=== PATIENT | male | born 1955 | race Caucasian/White ===

== ENCOUNTER 2022-01-18 03:54 | Inpatient (IN) ==
[2022-01-18] MEDS ORDERED: Ondansetron 4 MG/2 ML VIAL IVP PRN (08:07)
[2022-01-18] MEDS ORDERED: Naloxone 0.4 MG/ML INJ IVP PRN (08:07)
[2022-01-18] MEDS ORDERED: Dextrose Gel 15 GM/37.5 ML TUBE PO PRN ×2 (08:09)
[2022-01-18] MEDS ORDERED: *HR* Dextrose 50 % in Water (Syg) 50 ML SYRINGE IVP PRN (08:09)
[2022-01-18] MEDS ORDERED: D5% in Water 1,000 ML IVC PRN (08:09)
[2022-01-18] MEDS ORDERED: *HR* Labetalol 20 MG/4 ML SYRINGE IVP PRN (08:20)
[2022-01-18] MEDS ORDERED: Acetaminophen 325 MG TABLET PO PRN (08:44)
[2022-01-18] MEDS ORDERED: Morphine Sulfate 2 MG/ML SYRINGE IVP PRN (08:46)
[2022-01-18] MEDS ORDERED: *HR* LORazepam 0.5 MG TABLET PO ONE (08:58)
[2022-01-18] MEDS: Gabapentin 300 MG CAPSULE PO SCH ×3 (09:19→20:29)
[2022-01-18 09:38] LABS: Basophils % 0.5 %; Eosinophils % 0.2 %; Hematocrit 40.7 % (37.5-50.1); Hemoglobin 14.4 g/dL (12.9-16.9); Immature Granulocytes % 0.3 % (0-4); Lymphocytes # 0.6 K/mcL (0.6-4.6); Mean Corpuscular HGB Conc 35.4 g/dL (31.6-35.5); Mean Corpuscular Hemoglobin 32.9 pg (28.0-33.3); Mean Corpuscular Volume 92.9 fL (83.0-100.0); Mean Platelet Volume 8.5 fL (9.4-12.4); Monocytes # 0.4 K/mcL (0.0-1.3); Monocytes % 6.9 %; Neutrophils # 4.8 K/mcL (1.6-8.9); Platelet Count 101 K/mcL (140-400); Red Blood Count 4.38 M/mcL (4.19-5.50); Red Cell Distribution Width 13.4 % (11.5-14.5); Segmented Neutrophils % 82.1 %; White Blood Count 5.8 K/mcL (4.3-11.1)
[2022-01-18 09:41] LABS: Estimated Average Glucose 166 mg/dl; Hemoglobin A1C 7.4 %
[2022-01-18 09:57] LABS: BUN/Creatinine Ratio 9 (6-26); Blood Urea Nitrogen 4 mg/dL (8-23); Calcium 8.6 mg/dL (8.6-10.3); Carbon Dioxide 21 mEq/L (23-29); Chloride 91 mEq/L (98-107); Glucose 124 mg/dL (70-105); Magnesium 1.5 mg/dL (1.6-2.6); Osmolality,Calculated 254 (280-300); Phosphorous 3.3 mg/dL (2.7-4.5); Potassium 4.5 mEq/L (3.5-5.1); Sodium 123 mEq/L (136-145); eGFR For African Americans > 60 (> 60); eGFR For Non-African Americans > 60 (> 60)
[2022-01-18] MEDS: Thiamine (B-1) 500 MG in 0.9 % Sodium Chloride 50 ML IVPB SCH ×3 (11:06→20:14)
[2022-01-18] MEDS ORDERED: Insulin LISPRO 300 UNITS/3 ML VIAL SUBQ SCH (12:00)
[2022-01-18] MEDS ORDERED: Fluticasone Propionate Nasal 50 MCG/SPRAY BOTTLE NS PRN (16:24)
[2022-01-18] MEDS ORDERED: 0.9 % Sodium Chloride 1,000 ML IVC SCH (17:30)
[2022-01-18] MEDS: *HR* Heparin 5,000 UNIT/ML VIAL SQ SCH ×2 (17:30→20:14)
[2022-01-18] MEDS: traZODone 50 MG TABLET PO SCH (20:14)
[2022-01-18] MEDS: *HR* HYDROcodone/Acet 5/325 mg TABLET PO PRN (20:29)
[2022-01-19 04:40] LABS: Basophils % 0.4 %; Eosinophils % 0.4 %; Hematocrit 40.6 % (37.5-50.1); Hemoglobin 14.1 g/dL (12.9-16.9); Immature Granulocytes % 0.6 % (0-4); Lymphocytes # 0.8 K/mcL (0.6-4.6); Mean Corpuscular HGB Conc 34.7 g/dL (31.6-35.5); Mean Corpuscular Hemoglobin 32.6 pg (28.0-33.3); Mean Corpuscular Volume 93.8 fL (83.0-100.0); Mean Platelet Volume 8.6 fL (9.4-12.4); Monocytes # 0.5 K/mcL (0.0-1.3); Monocytes % 9.1 %; Neutrophils # 3.8 K/mcL (1.6-8.9); Platelet Count 103 K/mcL (140-400); Red Blood Count 4.33 M/mcL (4.19-5.50); Red Cell Distribution Width 13.6 % (11.5-14.5); Segmented Neutrophils % 73.5 %; White Blood Count 5.1 K/mcL (4.3-11.1)
[2022-01-19 04:54] LABS: BUN/Creatinine Ratio 12 (6-26); Blood Urea Nitrogen 7 mg/dL (8-23); Calcium 8.8 mg/dL (8.6-10.3); Carbon Dioxide 26 mEq/L (23-29); Chloride 95 mEq/L (98-107); Glucose 149 mg/dL (70-105); Osmolality,Calculated 267 (280-300); Potassium 4.1 mEq/L (3.5-5.1); Sodium 128 mEq/L (136-145); eGFR For African Americans > 60 (> 60); eGFR For Non-African Americans > 60 (> 60)
[2022-01-19] MEDS: *HR* Heparin 5,000 UNIT/ML VIAL SQ SCH ×2 (05:43→14:51)
[2022-01-19] MEDS ORDERED: CeFAZolin Syr 2,000MG/20 ML 2,000 MG/20 ML SYRINGE IVPB ONE (07:12)
[2022-01-19] MEDS ORDERED: Vancomycin 1,000 MG VIAL ONE (07:31)
[2022-01-19] MEDS: Insulin LISPRO 300 UNITS/3 ML VIAL SUBQ SCH ×3 (07:37→16:36)
[2022-01-19] MEDS ORDERED: Lidocaine -MPF 2% 2 ML VIAL ONE (07:41)
[2022-01-19] MEDS ORDERED: *HR* Rocuronium Bromide 50 MG/5 ML VIAL ONE (07:41)
[2022-01-19] MEDS ORDERED: *HR* FentaNYL (PF) 100 MCG/2 ML VIAL ONE ×2 (07:41→08:55)
[2022-01-19] MEDS ORDERED: Lidocaine HCL 4 ML Topical Solution (Laryng-O-Jet Kit Sterile Pak) TP ONE (07:41)
[2022-01-19] MEDS ORDERED: *HR* Propofol 200 MG/20 ML VIAL IVP ONE (07:41)
[2022-01-19] MEDS ORDERED: Ondansetron 4 MG/2 ML VIAL ONE (07:41)
[2022-01-19] MEDS ORDERED: Racepinephrine Neb 0.5 ML VIAL IH PRN (07:43)
[2022-01-19] MEDS ORDERED: *HR* HYDROmorphone PF 0.5 MG/0.5 ML SYRINGE IVP PRN (07:43)
[2022-01-19] MEDS ORDERED: *HR* Meperidine 25 MG/ML SYRINGE IVP PRN (07:43)
[2022-01-19] MEDS ORDERED: Ipratropium Neb 0.5 MG NEBULIZER IH PRN (07:43)
[2022-01-19] MEDS ORDERED: cloNIDine HCL 0.1 MG TABLET PO PRN (07:43)
[2022-01-19] MEDS ORDERED: flumazeniL 0.5 MG/5 ML VIAL IVP PRN (07:43)
[2022-01-19] MEDS ORDERED: Ondansetron 4 MG/2 ML VIAL IVP PRN (07:43)
[2022-01-19] MEDS ORDERED: Naloxone 0.4 MG/ML INJ IVP PRN (07:43)
[2022-01-19] MEDS ORDERED: *HR* Labetalol 20 MG/4 ML SYRINGE IVP PRN (07:43)
[2022-01-19] MEDS ORDERED: *HR* OxyCODONE Immed Rel 5 MG TABLET PO PRN (07:43)
[2022-01-19] MEDS ORDERED: Acetaminophen IV 1,000 MG/100 ML BAG IVPB PRN (07:43)
[2022-01-19] MEDS ORDERED: Albuterol 2.5 MG/3 ML NEBULIZER IH PRN (07:43)
[2022-01-19] MEDS ORDERED: *HR* Midazolam HCl 2 MG/2 ML VIAL IVP PRN (07:43)
[2022-01-19] MEDS ORDERED: *HR* HYDROMORPHONE 2 MG/ML VIAL ONE (09:50)
[2022-01-19] MEDS ORDERED: Sugammadex Sodium 200 MG/2 ML VIAL IV ONE (09:57)
[2022-01-19] MEDS: Gabapentin 300 MG CAPSULE PO SCH ×3 (12:19→21:03)
[2022-01-19] MEDS: Thiamine (B-1) 500 MG in 0.9 % Sodium Chloride 50 ML IVPB SCH ×3 (12:19→15:34)
[2022-01-19] MEDS: Ringers Solution, Lactated 1,000 ML IVC SCH (13:11)
[2022-01-19] MEDS: CeFAZolin 2 GM/120 ML BAG IVPB SCH (16:36)
[2022-01-19] MEDS: traZODone 50 MG TABLET PO SCH (21:03)
[2022-01-19] MEDS: *HR* HYDROcodone/Acet 5/325 mg TABLET PO PRN (21:04)
[2022-01-20] MEDS: CeFAZolin 2 GM/120 ML BAG IVPB SCH (00:07)
[2022-01-20 05:15] LABS: Basophils % 0.3 %; Eosinophils % 0.3 %; Hematocrit 27.8 % (37.5-50.1); Immature Granulocytes % 0.4 % (0-4); Lymphocytes # 1.1 K/mcL (0.6-4.6); Mean Corpuscular HGB Conc 34.2 g/dL (31.6-35.5); Mean Corpuscular Hemoglobin 33.6 pg (28.0-33.3); Mean Corpuscular Volume 98.2 fL (83.0-100.0); Monocytes # 0.6 K/mcL (0.0-1.3); Neutrophils # 5.3 K/mcL (1.6-8.9); Platelet Count 100 K/mcL (140-400); Red Blood Count 2.83 M/mcL (4.19-5.50); Red Cell Distribution Width 13.7 % (11.5-14.5); White Blood Count 7.1 K/mcL (4.3-11.1)
[2022-01-20 05:16] LABS: Hemoglobin 9.5 g/dL (12.9-16.9)
[2022-01-20 05:38] LABS: Alanine Aminotransferase 8 Units/L (7-52); Albumin 3.3 g/dL (3.5-5.7); Albumin/Globulin Ratio 1.3 (1.1-2.2); Alkaline Phosphatase 59 Units/L (34-104); Aspartate Amino Transferase 16 Units/L (13-39); BUN/Creatinine Ratio 10 (6-26); Bilirubin,Direct 0.2 mg/dL (0.0-0.2); Bilirubin,Indirect 0.6 mg/dL (0.0-1.0); Bilirubin,Total 0.8 mg/dL (0.3-1.0); Blood Urea Nitrogen 7 mg/dL (8-23); Calcium 8.5 mg/dL (8.6-10.3); Carbon Dioxide 30 mEq/L (23-29); Chloride 94 mEq/L (98-107); Globulin 2.5 g/dL (2.4-3.5); Glucose 285 mg/dL (70-105); Magnesium 1.7 mg/dL (1.6-2.6); Osmolality,Calculated 274 (280-300); Phosphorous 2.1 mg/dL (2.7-4.5); Potassium 4.2 mEq/L (3.5-5.1); Sodium 128 mEq/L (136-145); Total Protein 5.8 g/dL (6.4-8.9); eGFR For African Americans > 60 (> 60); eGFR For Non-African Americans > 60 (> 60)
[2022-01-20] MEDS: Multivit/Ca/Min/Fe/FA 1 TAB TABLET PO SCH (10:09)
[2022-01-20] MEDS: lisinopriL 5 MG TABLET PO SCH (10:09)
[2022-01-20] MEDS: Thiamine (B-1) 100 MG TABLET PO SCH (10:09)
[2022-01-20] MEDS: Folic Acid 1 MG TABLET PO SCH (10:10)
[2022-01-20] MEDS: Gabapentin 300 MG CAPSULE PO SCH ×3 (10:10→21:17)
[2022-01-20] MEDS: *HR* HYDROcodone/Acet 5/325 mg TABLET PO PRN ×2 (10:13→17:26)
[2022-01-20] MEDS: *HR* Enoxaparin 40 MG/0.4 ML SYRINGE SQ SCH (10:14)
[2022-01-20] MEDS: Insulin LISPRO 300 UNITS/3 ML VIAL SUBQ SCH ×3 (10:26→17:38)
[2022-01-20] MEDS ORDERED: Cyanocobalamin (B-12) 1,000 MCG/ML VIAL SQ ONE (12:49)
[2022-01-20] MEDS: Iron Sucrose Complex 200 MG in 0.9 % Sodium Chloride 100 ML IVPB SCH (17:32)
[2022-01-20] MEDS: traZODone 50 MG TABLET PO SCH (21:17)
[2022-01-21] MEDS: *HR* Enoxaparin 40 MG/0.4 ML SYRINGE SQ SCH (06:07)
[2022-01-21 07:21] LABS: Basophils % 0.3 %; Eosinophils # 0.1 K/mcL (0.0-0.6); Eosinophils % 0.9 %; Hematocrit 25.2 % (37.5-50.1); Hemoglobin 8.3 g/dL (12.9-16.9); Immature Granulocytes % 0.5 % (0-4); Lymphocytes % 17.4 %; Mean Corpuscular HGB Conc 32.9 g/dL (31.6-35.5); Mean Corpuscular Hemoglobin 32.9 pg (28.0-33.3); Mean Platelet Volume 8.9 fL (9.4-12.4); Monocytes # 0.5 K/mcL (0.0-1.3); Neutrophils # 4.2 K/mcL (1.6-8.9); Platelet Count 110 K/mcL (140-400); Red Blood Count 2.52 M/mcL (4.19-5.50); Segmented Neutrophils % 72.9 %; White Blood Count 5.8 K/mcL (4.3-11.1)
[2022-01-21 07:48] LABS: BUN/Creatinine Ratio 15 (6-26); Blood Urea Nitrogen 8 mg/dL (8-23); Calcium 8.7 mg/dL (8.6-10.3); Carbon Dioxide 32 mEq/L (23-29); Chloride 96 mEq/L (98-107); Glucose 219 mg/dL (70-105); Magnesium 1.7 mg/dL (1.6-2.6); Osmolality,Calculated 279 (280-300); Sodium 132 mEq/L (136-145); eGFR For African Americans > 60 (> 60); eGFR For Non-African Americans > 60 (> 60)
[2022-01-21] MEDS: Gabapentin 300 MG CAPSULE PO SCH ×3 (08:06→21:45)
[2022-01-21] MEDS: lisinopriL 5 MG TABLET PO SCH (08:06)
[2022-01-21] MEDS: Folic Acid 1 MG TABLET PO SCH (08:06)
[2022-01-21] MEDS: Thiamine (B-1) 100 MG TABLET PO SCH (08:06)
[2022-01-21] MEDS: Multivit/Ca/Min/Fe/FA 1 TAB TABLET PO SCH (08:06)
[2022-01-21] MEDS: *HR* SitaGLIPtin 25 MG TABLET PO SCH (08:06)
[2022-01-21] MEDS: Insulin LISPRO 300 UNITS/3 ML VIAL SUBQ SCH ×3 (08:08→17:41)
[2022-01-21] MEDS: Iron Sucrose Complex 200 MG in 0.9 % Sodium Chloride 100 ML IVPB SCH (09:56)
[2022-01-21] MEDS: traZODone 50 MG TABLET PO SCH (21:45)
[2022-01-22 02:16] LABS: Basophils % 0.7 %; Eosinophils # 0.1 K/mcL (0.0-0.6); Eosinophils % 1.2 %; Hematocrit 23.8 % (37.5-50.1); Lymphocytes % 16.5 %; Mean Corpuscular HGB Conc 33.6 g/dL (31.6-35.5); Mean Corpuscular Hemoglobin 33.1 pg (28.0-33.3); Mean Corpuscular Volume 98.3 fL (83.0-100.0); Mean Platelet Volume 8.7 fL (9.4-12.4); Monocytes # 0.5 K/mcL (0.0-1.3); Monocytes % 9.1 %; Neutrophils # 4.2 K/mcL (1.6-8.9); Platelet Count 125 K/mcL (140-400); Red Blood Count 2.42 M/mcL (4.19-5.50); Red Cell Distribution Width 13.7 % (11.5-14.5); Segmented Neutrophils % 71.5 %; White Blood Count 5.9 K/mcL (4.3-11.1)
[2022-01-22 02:33] LABS: BUN/Creatinine Ratio 17 (6-26); Blood Urea Nitrogen 9 mg/dL (8-23); Calcium 8.6 mg/dL (8.6-10.3); Carbon Dioxide 29 mEq/L (23-29); Chloride 93 mEq/L (98-107); Glucose 274 mg/dL (70-105); Magnesium 1.4 mg/dL (1.6-2.6); Osmolality,Calculated 274 (280-300); Potassium 4.3 mEq/L (3.5-5.1); Sodium 128 mEq/L (136-145); eGFR For African Americans > 60 (> 60); eGFR For Non-African Americans > 60 (> 60)
[2022-01-22] MEDS: *HR* Enoxaparin 40 MG/0.4 ML SYRINGE SQ SCH (05:51)
[2022-01-22] MEDS: *HR* SitaGLIPtin 25 MG TABLET PO SCH (07:50)
[2022-01-22] MEDS: Gabapentin 300 MG CAPSULE PO SCH ×3 (07:50→22:48)
[2022-01-22] MEDS: lisinopriL 5 MG TABLET PO SCH (07:50)
[2022-01-22] MEDS: Thiamine (B-1) 100 MG TABLET PO SCH (07:50)
[2022-01-22] MEDS: Multivit/Ca/Min/Fe/FA 1 TAB TABLET PO SCH (07:50)
[2022-01-22] MEDS: Folic Acid 1 MG TABLET PO SCH (07:50)
[2022-01-22] MEDS: Insulin LISPRO 300 UNITS/3 ML VIAL SUBQ SCH ×3 (08:02→17:14)
[2022-01-22] MEDS: Ringers Solution, Lactated 1,000 ML IVC SCH (10:35)
[2022-01-22] MEDS ORDERED: Iron Sucrose Complex 200 MG in 0.9 % Sodium Chloride 100 ML IVPB ONE (11:00)
[2022-01-22] MEDS ORDERED: Cyanocobalamin (B-12) 1,000 MCG/ML VIAL SQ ONE (11:01)
[2022-01-22] MEDS: *HR* HYDROcodone/Acet 5/325 mg TABLET PO PRN (21:19)
[2022-01-22] MEDS: traZODone 50 MG TABLET PO SCH (21:19)
[2022-01-22] MEDS: *HR* Metformin 500 MG TABLET PO SCH (22:10)
[2022-01-22] MEDS ORDERED: *HR* OxyCODONE Immed Rel 5 MG TABLET PO PRN (22:16)
[2022-01-23] MEDS: *HR* Enoxaparin 40 MG/0.4 ML SYRINGE SQ SCH (05:12)
[2022-01-23 07:07] LABS: Basophils % 0.7 %; Eosinophils # 0.1 K/mcL (0.0-0.6); Eosinophils % 1.6 %; Hemoglobin 7.7 g/dL (12.9-16.9); Immature Granulocytes % 1.4 % (0-4); Lymphocytes # 0.8 K/mcL (0.6-4.6); Lymphocytes % 18.3 %; Mean Corpuscular HGB Conc 33.5 g/dL (31.6-35.5); Mean Corpuscular Hemoglobin 32.6 pg (28.0-33.3); Mean Corpuscular Volume 97.5 fL (83.0-100.0); Mean Platelet Volume 8.9 fL (9.4-12.4); Monocytes # 0.5 K/mcL (0.0-1.3); Monocytes % 10.5 %; Neutrophils # 2.9 K/mcL (1.6-8.9); Platelet Count 146 K/mcL (140-400); Red Blood Count 2.36 M/mcL (4.19-5.50); Red Cell Distribution Width 14.1 % (11.5-14.5); Segmented Neutrophils % 67.5 %; White Blood Count 4.3 K/mcL (4.3-11.1)
[2022-01-23 07:26] LABS: BUN/Creatinine Ratio 15 (6-26); Blood Urea Nitrogen 8 mg/dL (8-23); Calcium 8.8 mg/dL (8.6-10.3); Carbon Dioxide 31 mEq/L (23-29); Chloride 93 mEq/L (98-107); Glucose 316 mg/dL (70-105); Magnesium 1.6 mg/dL (1.6-2.6); Osmolality,Calculated 280 (280-300); Potassium 4.2 mEq/L (3.5-5.1); Sodium 130 mEq/L (136-145); eGFR For African Americans > 60 (> 60); eGFR For Non-African Americans > 60 (> 60)
[2022-01-23] MEDS: *HR* Metformin 500 MG TABLET PO SCH (08:34)
[2022-01-23] MEDS: Gabapentin 300 MG CAPSULE PO SCH ×2 (08:35→15:43)
[2022-01-23] MEDS: Multivit/Ca/Min/Fe/FA 1 TAB TABLET PO SCH (08:35)
[2022-01-23] MEDS: Thiamine (B-1) 100 MG TABLET PO SCH (08:35)
[2022-01-23] MEDS: lisinopriL 5 MG TABLET PO SCH (08:35)
[2022-01-23] MEDS: *HR* SitaGLIPtin 25 MG TABLET PO SCH (08:35)
[2022-01-23] MEDS: Folic Acid 1 MG TABLET PO SCH (08:36)
[2022-01-23] MEDS: Insulin LISPRO 300 UNITS/3 ML VIAL SUBQ SCH ×2 (08:40→12:02)
[2022-01-23 14:57] VITALS: BP 131/77; PULSE 92; TEMP 99; O2SAT 95
[2022-01-23] MEDS: *HR* HYDROcodone/Acet 5/325 mg TABLET PO PRN (15:43)
== END 2022-01-23 16:36 | disposition home health service (06) | DRG 481 ==
LOC: 3NENU → SUATTDRO 07:00 → 4WAOSI 13:27
PROVIDERS: ADMIT Student in an Organized Health Care Education/Training Program; ATTEND Pharmacist

== ENCOUNTER 2022-02-01 00:16 | Observation (INO) ==
[2022-02-01] MEDS ORDERED: Iopamidol - 370 500 ML MLS IVP ONE (00:42)
[2022-02-01 01:09] LABS: Basophils # 0.1 K/mcL (0.0-0.2); Basophils % 0.8 %; Eosinophils % 0.2 %; Hematocrit 31.3 % (37.5-50.1); Hemoglobin 11.4 g/dL (12.9-16.9); Immature Granulocytes % 1.5 % (0-4); Lymphocytes # 0.5 K/mcL (0.6-4.6); Lymphocytes % 5.8 %; Mean Corpuscular HGB Conc 36.4 g/dL (31.6-35.5); Mean Corpuscular Hemoglobin 32.5 pg (28.0-33.3); Mean Corpuscular Volume 89.2 fL (83.0-100.0); Mean Platelet Volume 7.9 fL (9.4-12.4); Monocytes # 0.6 K/mcL (0.0-1.3); Monocytes % 6.8 %; Neutrophils # 7.6 K/mcL (1.6-8.9); Platelet Count 310 K/mcL (140-400); Red Blood Count 3.51 M/mcL (4.19-5.50); Red Cell Distribution Width 13.5 % (11.5-14.5); Segmented Neutrophils % 84.9 %
[2022-02-01 01:30] LABS: Alanine Aminotransferase 12 Units/L (7-52); Albumin 3.7 g/dL (3.5-5.7); Albumin/Globulin Ratio 1.1 (1.1-2.2); Alkaline Phosphatase 100 Units/L (34-104); Aspartate Amino Transferase 21 Units/L (13-39); BUN/Creatinine Ratio 13 (6-26); Bilirubin,Total 1.5 mg/dL (0.3-1.0); Blood Urea Nitrogen 4 mg/dL (8-23); Calcium 8.8 mg/dL (8.6-10.3); Carbon Dioxide 23 mEq/L (23-29); Chloride 79 mEq/L (98-107); Globulin 3.4 g/dL (2.4-3.5); Glucose 134 mg/dL (70-105); Osmolality,Calculated 237 (280-300); Potassium 3.7 mEq/L (3.5-5.1); Sodium 114 mEq/L (136-145); Total Protein 7.1 g/dL (6.4-8.9); eGFR For African Americans > 60 (> 60); eGFR For Non-African Americans > 60 (> 60)
[2022-02-01] MEDS ORDERED: 0.9 % Sodium Chloride 1,000 ML IV ONE (01:33)
[2022-02-01 01:48] LABS: Ethanol < 10 mg/dL (Less than 10)
[2022-02-01] MEDS ORDERED: Naloxone 0.4 MG/ML INJ IVP PRN (03:43)
[2022-02-01] MEDS ORDERED: Ondansetron 4 MG/2 ML VIAL IVP PRN (03:43)
[2022-02-01] MEDS ORDERED: *HR* LORazepam 2 MG/ML VIAL IVP PRN ×2 (03:51)
[2022-02-01] MEDS ORDERED: D5% in Water 1,000 ML IVC PRN (05:05)
[2022-02-01] MEDS ORDERED: Dextrose Gel 15 GM/37.5 ML TUBE PO PRN ×2 (05:05)
[2022-02-01] MEDS ORDERED: *HR* Dextrose 50 % in Water (Syg) 50 ML SYRINGE IVP PRN (05:05)
[2022-02-01 07:16] LABS: Basophils # 0.1 K/mcL (0.0-0.2); Basophils % 0.8 %; Eosinophils % 0.3 %; Immature Granulocytes % 1.7 % (0-4); Lymphocytes # 0.6 K/mcL (0.6-4.6); Lymphocytes % 7.3 %; Mean Corpuscular HGB Conc 35.1 g/dL (31.6-35.5); Mean Corpuscular Volume 91.1 fL (83.0-100.0); Monocytes # 0.5 K/mcL (0.0-1.3); Monocytes % 6.6 %; Neutrophils # 6.5 K/mcL (1.6-8.9); Platelet Count 340 K/mcL (140-400); Red Blood Count 4.06 M/mcL (4.19-5.50); Red Cell Distribution Width 13.7 % (11.5-14.5); Segmented Neutrophils % 83.3 %; White Blood Count 7.8 K/mcL (4.3-11.1)
[2022-02-01 07:22] LABS: INR 1.1; Prothrombin Time 12.1 Seconds (9.4-12.1)
[2022-02-01 07:39] LABS: BUN/Creatinine Ratio 9 (6-26); Blood Urea Nitrogen 4 mg/dL (8-23); Calcium 9.2 mg/dL (8.6-10.3); Carbon Dioxide 26 mEq/L (23-29); Chloride 79 mEq/L (98-107); Glucose 132 mg/dL (70-105); Magnesium 1.7 mg/dL (1.6-2.6); Osmolality,Calculated 241 (280-300); Potassium 4.1 mEq/L (3.5-5.1); Sodium 116 mEq/L (136-145); eGFR For African Americans > 60 (> 60); eGFR For Non-African Americans > 60 (> 60)
[2022-02-01] MEDS: Insulin LISPRO 300 UNITS/3 ML VIAL SUBQ SCH ×3 (08:27→17:12)
[2022-02-01 10:23] LABS: Bilirubin,Urine Negative (Negative); Blood,Urine Negative (Negative); Clarity,Urine Clear (Clear); Color,Urine Light-Yellow (Yellow); Glucose,Urine (UA) Normal (Normal); Ketones,Urine 20 mg/dL (Negative); Leukocyte Esterase,Urine Negative (Negative); Nitrite,Urine Negative (Negative); PH,Urine 6.5 pH Units (5.0-8.0); Protein,Urine Trace mg/dL (Neg-Trace); Specific Gravity,Urine 1.016 (1.010-1.025)
[2022-02-01 13:55] LABS: BUN/Creatinine Ratio 10 (6-26); Blood Urea Nitrogen 7 mg/dL (8-23); Calcium 9.1 mg/dL (8.6-10.3); Carbon Dioxide 26 mEq/L (23-29); Chloride 81 mEq/L (98-107); Glucose 177 mg/dL (70-105); Osmolality,Calculated 248 (280-300); Sodium 118 mEq/L (136-145); eGFR For African Americans > 60 (> 60); eGFR For Non-African Americans > 60 (> 60)
[2022-02-01] MEDS: Thiamine (B-1) 100 MG, Folic Acid 1 MG, MVI, adult with vitamin K 10 ML in 0.9 % Sodi... IVPB SCH (17:24)
[2022-02-01 17:34] LABS: BUN/Creatinine Ratio 13 (6-26); Blood Urea Nitrogen 8 mg/dL (8-23); Calcium 9.2 mg/dL (8.6-10.3); Carbon Dioxide 26 mEq/L (23-29); Chloride 82 mEq/L (98-107); Glucose 252 mg/dL (70-105); Osmolality,Calculated 253 (280-300); Potassium 3.9 mEq/L (3.5-5.1); Sodium 118 mEq/L (136-145); eGFR For African Americans > 60 (> 60); eGFR For Non-African Americans > 60 (> 60)
[2022-02-01] MEDS ORDERED: Ringers Solution, Lactated 1,000 ML IVC SCH (17:45)
[2022-02-02 01:28] LABS: Basophils # 0.1 K/mcL (0.0-0.2); Basophils % 0.7 %; Eosinophils % 0.5 %; Hematocrit 31.6 % (37.5-50.1); Immature Granulocytes % 1.9 % (0-4); Lymphocytes # 0.9 K/mcL (0.6-4.6); Lymphocytes % 12.6 %; Mean Corpuscular HGB Conc 34.8 g/dL (31.6-35.5); Mean Corpuscular Hemoglobin 32.5 pg (28.0-33.3); Mean Corpuscular Volume 93.5 fL (83.0-100.0); Mean Platelet Volume 8.2 fL (9.4-12.4); Monocytes # 0.6 K/mcL (0.0-1.3); Monocytes % 8.8 %; Neutrophils # 5.5 K/mcL (1.6-8.9); Platelet Count 303 K/mcL (140-400); Red Blood Count 3.38 M/mcL (4.19-5.50); Red Cell Distribution Width 13.8 % (11.5-14.5); Segmented Neutrophils % 75.5 %; White Blood Count 7.3 K/mcL (4.3-11.1)
[2022-02-02] MEDS: traZODone 50 MG TABLET PO SCH ×2 (01:31→21:34)
[2022-02-02 02:43] LABS: BUN/Creatinine Ratio 19 (6-26); Blood Urea Nitrogen 11 mg/dL (8-23); Calcium 8.8 mg/dL (8.6-10.3); Carbon Dioxide 28 mEq/L (23-29); Chloride 86 mEq/L (98-107); Glucose 263 mg/dL (70-105); Osmolality,Calculated 259 (280-300); Sodium 120 mEq/L (136-145); eGFR For African Americans > 60 (> 60); eGFR For Non-African Americans > 60 (> 60)
[2022-02-02] MEDS: Insulin LISPRO 300 UNITS/3 ML VIAL SUBQ SCH ×3 (08:13→16:46)
[2022-02-02] MEDS: *HR* OxyCODONE Immed Rel 5 MG TABLET PO PRN ×2 (14:25→21:34)
[2022-02-02] MEDS ORDERED: Ringers Solution, Lactated 1,000 ML IVC SCH (15:00)
[2022-02-02] MEDS: Thiamine (B-1) 100 MG, Folic Acid 1 MG, MVI, adult with vitamin K 10 ML in 0.9 % Sodi... IVPB SCH (17:14)
[2022-02-02] MEDS ORDERED: Methyl Salicylate/Menthol 85 APPL/85 GM TUBE TP PRN (21:52)
[2022-02-03] MEDS: lisinopriL 5 MG TABLET PO SCH ×2 (06:25→06:29)
[2022-02-03 06:37] LABS: Basophils # 0.1 K/mcL (0.0-0.2); Basophils % 0.9 %; Eosinophils # 0.1 K/mcL (0.0-0.6); Eosinophils % 1.2 %; Hematocrit 30.8 % (37.5-50.1); Hemoglobin 10.3 g/dL (12.9-16.9); Immature Granulocytes % 1.4 % (0-4); Lymphocytes % 17.2 %; Mean Corpuscular HGB Conc 33.4 g/dL (31.6-35.5); Mean Corpuscular Volume 95.7 fL (83.0-100.0); Mean Platelet Volume 8.1 fL (9.4-12.4); Monocytes # 0.6 K/mcL (0.0-1.3); Monocytes % 10.7 %; Platelet Count 273 K/mcL (140-400); Red Blood Count 3.22 M/mcL (4.19-5.50); Red Cell Distribution Width 13.3 % (11.5-14.5); Segmented Neutrophils % 68.6 %; White Blood Count 5.8 K/mcL (4.3-11.1)
[2022-02-03 06:48] LABS: BUN/Creatinine Ratio 21 (6-26); Blood Urea Nitrogen 11 mg/dL (8-23); Calcium 8.8 mg/dL (8.6-10.3); Carbon Dioxide 32 mEq/L (23-29); Chloride 90 mEq/L (98-107); Glucose 234 mg/dL (70-105); Osmolality,Calculated 267 (280-300); Potassium 4.2 mEq/L (3.5-5.1); Sodium 125 mEq/L (136-145); eGFR For African Americans > 60 (> 60); eGFR For Non-African Americans > 60 (> 60)
[2022-02-03] MEDS: Insulin LISPRO 300 UNITS/3 ML VIAL SUBQ SCH ×3 (08:39→16:54)
[2022-02-03] MEDS: Thiamine (B-1) 100 MG, Folic Acid 1 MG, MVI, adult with vitamin K 10 ML in 0.9 % Sodi... IVPB SCH (17:46)
[2022-02-03] MEDS: *HR* OxyCODONE Immed Rel 5 MG TABLET PO PRN (21:05)
[2022-02-03] MEDS: traZODone 50 MG TABLET PO SCH (21:06)
[2022-02-04 02:53] LABS: Basophils # 0.1 K/mcL (0.0-0.2); Eosinophils # 0.1 K/mcL (0.0-0.6); Eosinophils % 1.7 %; Immature Granulocytes % 1.5 % (0-4); Lymphocytes # 0.9 K/mcL (0.6-4.6); Lymphocytes % 16.8 %; Mean Corpuscular HGB Conc 33.3 g/dL (31.6-35.5); Mean Corpuscular Hemoglobin 32.8 pg (28.0-33.3); Mean Corpuscular Volume 98.4 fL (83.0-100.0); Mean Platelet Volume 8.3 fL (9.4-12.4); Monocytes # 0.5 K/mcL (0.0-1.3); Monocytes % 9.4 %; Neutrophils # 3.6 K/mcL (1.6-8.9); Platelet Count 250 K/mcL (140-400); Red Blood Count 3.05 M/mcL (4.19-5.50); Red Cell Distribution Width 13.5 % (11.5-14.5); Segmented Neutrophils % 69.6 %; White Blood Count 5.2 K/mcL (4.3-11.1)
[2022-02-04 03:12] LABS: BUN/Creatinine Ratio 24 (6-26); Blood Urea Nitrogen 12 mg/dL (8-23); Calcium 8.5 mg/dL (8.6-10.3); Carbon Dioxide 27 mEq/L (23-29); Chloride 95 mEq/L (98-107); Glucose 208 mg/dL (70-105); Osmolality,Calculated 270 (280-300); Potassium 4.1 mEq/L (3.5-5.1); Sodium 127 mEq/L (136-145); eGFR For African Americans > 60 (> 60); eGFR For Non-African Americans > 60 (> 60)
[2022-02-04] MEDS: *HR* OxyCODONE Immed Rel 5 MG TABLET PO PRN ×2 (03:22→18:08)
[2022-02-04] MEDS: lisinopriL 5 MG TABLET PO SCH (07:42)
[2022-02-04] MEDS: Insulin LISPRO 300 UNITS/3 ML VIAL SUBQ SCH ×3 (07:42→17:01)
[2022-02-04] MEDS ORDERED: Iopamidol - 370 500 ML MLS IVP ONE (12:16)
[2022-02-04] MEDS: traZODone 50 MG TABLET PO SCH (21:15)
[2022-02-05 03:53] LABS: Hematocrit 32.5 % (37.5-50.1); Mean Corpuscular HGB Conc 33.8 g/dL (31.6-35.5); Mean Corpuscular Hemoglobin 32.4 pg (28.0-33.3); Mean Corpuscular Volume 95.6 fL (83.0-100.0); Mean Platelet Volume 8.3 fL (9.4-12.4); Platelet Count 243 K/mcL (140-400); Red Cell Distribution Width 13.1 % (11.5-14.5); White Blood Count 5.7 K/mcL (4.3-11.1)
[2022-02-05 04:06] LABS: BUN/Creatinine Ratio 26 (6-26); Blood Urea Nitrogen 12 mg/dL (8-23); Calcium 8.6 mg/dL (8.6-10.3); Carbon Dioxide 27 mEq/L (23-29); Chloride 92 mEq/L (98-107); Glucose 198 mg/dL (70-105); Osmolality,Calculated 267 (280-300); Potassium 4.1 mEq/L (3.5-5.1); Sodium 126 mEq/L (136-145); eGFR For African Americans > 60 (> 60); eGFR For Non-African Americans > 60 (> 60)
[2022-02-05] MEDS: *HR* OxyCODONE Immed Rel 5 MG TABLET PO PRN ×4 (05:34→21:30)
[2022-02-05] MEDS ORDERED: lisinopriL 5 MG TABLET PO ONE ×2 (08:02→09:00)
[2022-02-05] MEDS: Insulin LISPRO 300 UNITS/3 ML VIAL SUBQ SCH ×5 (10:00→21:30)
[2022-02-05] MEDS ORDERED: *HR* LORazepam 2 MG/ML VIAL IVP PRN (13:49)
[2022-02-05] MEDS: Gabapentin 300 MG CAPSULE PO SCH ×2 (16:27→21:30)
[2022-02-05] MEDS: Thiamine (B-1) 100 MG TABLET PO SCH (16:27)
[2022-02-05] MEDS: Multivit/Ca/Min/Fe/FA 1 TAB TABLET PO SCH (16:27)
[2022-02-05] MEDS: Folic Acid 1 MG TABLET PO SCH (16:27)
[2022-02-05] MEDS: traZODone 50 MG TABLET PO SCH (21:30)
[2022-02-06 04:08] LABS: Hematocrit 32.5 % (37.5-50.1); Hemoglobin 10.8 g/dL (12.9-16.9); Mean Corpuscular HGB Conc 33.2 g/dL (31.6-35.5); Mean Corpuscular Hemoglobin 31.8 pg (28.0-33.3); Mean Corpuscular Volume 95.6 fL (83.0-100.0); Mean Platelet Volume 8.2 fL (9.4-12.4); Platelet Count 194 K/mcL (140-400); Red Cell Distribution Width 13.1 % (11.5-14.5); White Blood Count 5.9 K/mcL (4.3-11.1)
[2022-02-06 04:26] LABS: BUN/Creatinine Ratio 19 (6-26); Blood Urea Nitrogen 11 mg/dL (8-23); Carbon Dioxide 27 mEq/L (23-29); Chloride 92 mEq/L (98-107); Glucose 254 mg/dL (70-105); Osmolality,Calculated 270 (280-300); Potassium 4.4 mEq/L (3.5-5.1); Sodium 126 mEq/L (136-145); eGFR For African Americans > 60 (> 60); eGFR For Non-African Americans > 60 (> 60)
[2022-02-06] MEDS: Insulin LISPRO 300 UNITS/3 ML VIAL SUBQ SCH ×4 (07:38→20:35)
[2022-02-06] MEDS: Gabapentin 300 MG CAPSULE PO SCH ×3 (07:39→20:34)
[2022-02-06] MEDS: Thiamine (B-1) 100 MG TABLET PO SCH (07:39)
[2022-02-06] MEDS: Folic Acid 1 MG TABLET PO SCH (07:39)
[2022-02-06] MEDS: lisinopriL 5 MG TABLET PO SCH (07:39)
[2022-02-06] MEDS: *HR* OxyCODONE Immed Rel 5 MG TABLET PO PRN (07:39)
[2022-02-06] MEDS: Multivit/Ca/Min/Fe/FA 1 TAB TABLET PO SCH (07:39)
[2022-02-06] MEDS: traZODone 50 MG TABLET PO SCH (20:34)
[2022-02-07 03:02] LABS: Hematocrit 32.3 % (37.5-50.1); Hemoglobin 10.8 g/dL (12.9-16.9); Mean Corpuscular HGB Conc 33.4 g/dL (31.6-35.5); Mean Corpuscular Hemoglobin 31.8 pg (28.0-33.3); Mean Platelet Volume 8.6 fL (9.4-12.4); Platelet Count 186 K/mcL (140-400); Red Cell Distribution Width 12.9 % (11.5-14.5); White Blood Count 5.2 K/mcL (4.3-11.1)
[2022-02-07 03:27] LABS: BUN/Creatinine Ratio 30 (6-26); Blood Urea Nitrogen 15 mg/dL (8-23); Calcium 8.9 mg/dL (8.6-10.3); Carbon Dioxide 26 mEq/L (23-29); Chloride 96 mEq/L (98-107); Glucose 141 mg/dL (70-105); Osmolality,Calculated 273 (280-300); Potassium 4.4 mEq/L (3.5-5.1); Sodium 130 mEq/L (136-145); eGFR For African Americans > 60 (> 60); eGFR For Non-African Americans > 60 (> 60)
[2022-02-07 07:55] VITALS: O2SAT 97
[2022-02-07] MEDS: Insulin LISPRO 300 UNITS/3 ML VIAL SUBQ SCH ×2 (09:36→11:54)
[2022-02-07] MEDS: Multivit/Ca/Min/Fe/FA 1 TAB TABLET PO SCH (09:36)
[2022-02-07] MEDS: Gabapentin 300 MG CAPSULE PO SCH ×2 (09:36→15:47)
[2022-02-07] MEDS: Thiamine (B-1) 100 MG TABLET PO SCH (09:36)
[2022-02-07] MEDS: Folic Acid 1 MG TABLET PO SCH (09:36)
[2022-02-07] MEDS: lisinopriL 5 MG TABLET PO SCH (11:52)
[2022-02-07 12:00] VITALS: PULSE 98; TEMP 98
[2022-02-07 12:02] VITALS: BP 160/90
[2022-02-07] MEDS: *HR* OxyCODONE Immed Rel 5 MG TABLET PO PRN (12:05)
[2022-02-07 13:34] LABS: Influenza A PCR Negative (Negative); Influenza B PCR Negative (Negative); Resp. Syncytial Virus PCR Negative (Negative)
[2022-02-07 13:41] LABS: SARS-CoV-2 by PCR (In House) Negative (Negative)
[2022-02-07] MEDS ORDERED: Acetaminophen 325 MG TABLET PO PRN (17:08)
[2022-02-07] MEDS ORDERED: Ondansetron ODT 4 MG TAB.RAPDIS SL PRN (17:08)
== END 2022-02-07 16:00 ==
LOC: 2NNU 00:16 → EMEROOARM 00:16 → SUATTDRO 03:50 → 2NNU 05:15 → 2ANU 02-04 05:52
PROVIDERS: ADMIT Internal Medicine; ATTEND Internal Medicine

== ENCOUNTER 2022-02-22 12:16 | Inpatient (IN) ==
[2022-02-22] MEDS ORDERED: Naloxone 0.4 MG/ML INJ IVP PRN (14:42)
[2022-02-22] MEDS ORDERED: *HR* LORazepam 2 MG/ML VIAL IVP PRN ×3 (14:42)
[2022-02-22] MEDS ORDERED: Acetaminophen 325 MG TABLET PO PRN (14:42)
[2022-02-22] MEDS ORDERED: *HR* Dextrose 50 % in Water (Syg) 50 ML SYRINGE IVP PRN (14:49)
[2022-02-22] MEDS ORDERED: D5% in Water 1,000 ML IVC PRN (14:49)
[2022-02-22] MEDS ORDERED: Dextrose Gel 15 GM/37.5 ML TUBE PO PRN ×2 (14:49)
[2022-02-22] MEDS: *HR* LORazepam 2 MG/ML VIAL IVP PRN (15:33)
[2022-02-22] MEDS: Dexmedetomidine HCl 400 MCG/100 ML MLS IVC SCH (15:34)
[2022-02-22 15:50] LABS: Basophils # 0.1 K/mcL (0.0-0.2); Basophils % 0.5 %; Eosinophils % 0.2 %; Hemoglobin 14.3 g/dL (12.9-16.9); Immature Granulocytes % 0.7 % (0-4); Lymphocytes # 0.6 K/mcL (0.6-4.6); Lymphocytes % 5.3 %; Mean Corpuscular HGB Conc 36.7 g/dL (31.6-35.5); Mean Corpuscular Hemoglobin 31.6 pg (28.0-33.3); Mean Corpuscular Volume 86.1 fL (83.0-100.0); Mean Platelet Volume 8.3 fL (9.4-12.4); Monocytes % 9.2 %; Neutrophils # 8.7 K/mcL (1.6-8.9); Platelet Count 259 K/mcL (140-400); Red Blood Count 4.53 M/mcL (4.19-5.50); Red Cell Distribution Width 12.7 % (11.5-14.5); Segmented Neutrophils % 84.1 %; White Blood Count 10.3 K/mcL (4.3-11.1)
[2022-02-22 15:57] LABS: INR 1.1; Prothrombin Time 12.6 Seconds (9.4-12.1)
[2022-02-22 16:14] LABS: BUN/Creatinine Ratio 18 (6-26); Blood Urea Nitrogen 10 mg/dL (8-23); Calcium 9.5 mg/dL (8.6-10.3); Carbon Dioxide 24 mEq/L (23-29); Chloride 81 mEq/L (98-107); Glucose 122 mg/dL (70-105); Osmolality,Calculated 242 (280-300); Potassium 4.2 mEq/L (3.5-5.1); Sodium 116 mEq/L (136-145); eGFR For African Americans > 60 (> 60); eGFR For Non-African Americans > 60 (> 60)
[2022-02-22 16:15] LABS: Alanine Aminotransferase 16 Units/L (7-52); Albumin 4.3 g/dL (3.5-5.7); Albumin/Globulin Ratio 1.2 (1.1-2.2); Alkaline Phosphatase 155 Units/L (34-104); Aspartate Amino Transferase 38 Units/L (13-39); BUN/Creatinine Ratio 17 (6-26); Bilirubin,Direct 0.4 mg/dL (0.0-0.2); Bilirubin,Indirect 0.8 mg/dL (0.0-1.0); Bilirubin,Total 1.2 mg/dL (0.3-1.0); Blood Urea Nitrogen 9 mg/dL (8-23); Calcium 9.4 mg/dL (8.6-10.3); Carbon Dioxide 25 mEq/L (23-29); Chloride 81 mEq/L (98-107); Globulin 3.5 g/dL (2.4-3.5); Glucose 119 mg/dL (70-105); Magnesium 1.6 mg/dL (1.6-2.6); Osmolality,Calculated 242 (280-300); Phosphorous 3.3 mg/dL (2.7-4.5); Potassium 4.2 mEq/L (3.5-5.1); Sodium 116 mEq/L (136-145); Total Protein 7.8 g/dL (6.4-8.9); eGFR For African Americans > 60 (> 60); eGFR For Non-African Americans > 60 (> 60)
[2022-02-22 16:20] LABS: Thyroid Stimulating Hormone 1.834 mcIU/mL (0.340-5.600)
[2022-02-22] MEDS: Insulin LISPRO 300 UNITS/3 ML VIAL SUBQ SCH ×2 (16:45→19:43)
[2022-02-22] MEDS: Thiamine (B-1) 100 MG, Folic Acid 1 MG, MVI, adult with vitamin K 10 ML in 0.9 % Sodi... IVPB SCH (17:33)
[2022-02-22] MEDS: *HR* Heparin 5,000 UNIT/ML VIAL SQ SCH (17:33)
[2022-02-22 18:05] LABS: Bilirubin,Urine Negative (Negative); Blood,Urine Large (Negative); Clarity,Urine Clear (Clear); Color,Urine Light-Yellow (Yellow); Glucose,Urine (UA) Normal (Normal); Hyaline Casts,Urine Few per lpf (None Seen); Ketones,Urine 40 mg/dL (Negative); Leukocyte Esterase,Urine Negative (Negative); Nitrite,Urine Negative (Negative); Protein,Urine 50 mg/dL (Neg-Trace); RBC,Urine 15-30 per hpf (0-3); Sodium, Urine 71.7 mEq/L; Specific Gravity,Urine 1.012 (1.010-1.025); Urobilinogen,Urine Normal (Normal); WBC,Urine 0-3 per hpf (0-3)
[2022-02-22 18:19] LABS: Estimated Average Glucose 120 mg/dl; Hemoglobin A1C 5.8 %
[2022-02-22 19:35] LABS: BUN/Creatinine Ratio 18 (6-26); Blood Urea Nitrogen 11 mg/dL (8-23); Calcium 8.7 mg/dL (8.6-10.3); Carbon Dioxide 23 mEq/L (23-29); Chloride 84 mEq/L (98-107); Glucose 141 mg/dL (70-105); Osmolality,Calculated 244 (280-300); Potassium 4.4 mEq/L (3.5-5.1); Sodium 116 mEq/L (136-145); eGFR For African Americans > 60 (> 60); eGFR For Non-African Americans > 60 (> 60)
[2022-02-22 21:57] LABS: BUN/Creatinine Ratio 18 (6-26); Blood Urea Nitrogen 11 mg/dL (8-23); Calcium 8.9 mg/dL (8.6-10.3); Carbon Dioxide 23 mEq/L (23-29); Chloride 84 mEq/L (98-107); Glucose 135 mg/dL (70-105); Osmolality,Calculated 243 (280-300); Potassium 4.5 mEq/L (3.5-5.1); Sodium 116 mEq/L (136-145); eGFR For African Americans > 60 (> 60); eGFR For Non-African Americans > 60 (> 60)
[2022-02-22 23:35] LABS: BUN/Creatinine Ratio 19 (6-26); Blood Urea Nitrogen 10 mg/dL (8-23); Calcium 8.7 mg/dL (8.6-10.3); Carbon Dioxide 22 mEq/L (23-29); Chloride 85 mEq/L (98-107); Glucose 122 mg/dL (70-105); Osmolality,Calculated 242 (280-300); Potassium 4.2 mEq/L (3.5-5.1); Sodium 116 mEq/L (136-145); eGFR For African Americans > 60 (> 60); eGFR For Non-African Americans > 60 (> 60)
[2022-02-23] MEDS: 0.9 % Sodium Chloride 1,000 ML IVC SCH ×2 (00:38→08:18)
[2022-02-23 01:52] LABS: BUN/Creatinine Ratio 17 (6-26); Blood Urea Nitrogen 11 mg/dL (8-23); Carbon Dioxide 27 mEq/L (23-29); Chloride 85 mEq/L (98-107); Glucose 123 mg/dL (70-105); Osmolality,Calculated 249 (280-300); Potassium 4.2 mEq/L (3.5-5.1); Sodium 119 mEq/L (136-145); eGFR For African Americans > 60 (> 60); eGFR For Non-African Americans > 60 (> 60)
[2022-02-23] MEDS: *HR* Heparin 5,000 UNIT/ML VIAL SQ SCH ×2 (05:39→18:01)
[2022-02-23 06:06] LABS: VBG Ionized Calcium 1.19 mmol/L (1.15-1.35)
[2022-02-23 06:08] LABS: Basophils % 0.5 %; Eosinophils # 0.1 K/mcL (0.0-0.6); Hematocrit 36.7 % (37.5-50.1); Immature Granulocytes % 0.7 % (0-4); Lymphocytes # 0.8 K/mcL (0.6-4.6); Lymphocytes % 13.8 %; Mean Corpuscular HGB Conc 34.6 g/dL (31.6-35.5); Mean Corpuscular Hemoglobin 30.6 pg (28.0-33.3); Mean Corpuscular Volume 88.4 fL (83.0-100.0); Mean Platelet Volume 8.6 fL (9.4-12.4); Monocytes # 0.6 K/mcL (0.0-1.3); Monocytes % 10.3 %; Neutrophils # 4.5 K/mcL (1.6-8.9); Platelet Count 246 K/mcL (140-400); Red Blood Count 4.15 M/mcL (4.19-5.50); Red Cell Distribution Width 12.7 % (11.5-14.5); Segmented Neutrophils % 73.7 %
[2022-02-23 06:09] LABS: Hemoglobin 12.7 g/dL (12.9-16.9)
[2022-02-23 06:24] LABS: BUN/Creatinine Ratio 18 (6-26); Blood Urea Nitrogen 10 mg/dL (8-23); Carbon Dioxide 26 mEq/L (23-29); Chloride 86 mEq/L (98-107); Glucose 112 mg/dL (70-105); Osmolality,Calculated 250 (280-300); Potassium 3.8 mEq/L (3.5-5.1); Sodium 120 mEq/L (136-145); eGFR For African Americans > 60 (> 60); eGFR For Non-African Americans > 60 (> 60)
[2022-02-23 06:27] LABS: Magnesium 1.4 mg/dL (1.6-2.6); Phosphorous 3.7 mg/dL (2.7-4.5)
[2022-02-23 08:20] LABS: BUN/Creatinine Ratio 16 (6-26); Blood Urea Nitrogen 9 mg/dL (8-23); Calcium 8.6 mg/dL (8.6-10.3); Carbon Dioxide 27 mEq/L (23-29); Chloride 88 mEq/L (98-107); Glucose 181 mg/dL (70-105); Osmolality,Calculated 253 (280-300); Potassium 3.8 mEq/L (3.5-5.1); Sodium 120 mEq/L (136-145); eGFR For African Americans > 60 (> 60); eGFR For Non-African Americans > 60 (> 60)
[2022-02-23] MEDS: Insulin LISPRO 300 UNITS/3 ML VIAL SUBQ SCH ×4 (08:24→20:26)
[2022-02-23 09:57] LABS: BUN/Creatinine Ratio 15 (6-26); Blood Urea Nitrogen 8 mg/dL (8-23); Calcium 8.6 mg/dL (8.6-10.3); Carbon Dioxide 25 mEq/L (23-29); Chloride 87 mEq/L (98-107); Glucose 126 mg/dL (70-105); Osmolality,Calculated 250 (280-300); Potassium 3.6 mEq/L (3.5-5.1); Sodium 120 mEq/L (136-145); eGFR For African Americans > 60 (> 60); eGFR For Non-African Americans > 60 (> 60)
[2022-02-23] MEDS: Dexmedetomidine HCl 400 MCG/100 ML MLS IVC SCH (11:00)
[2022-02-23 11:32] LABS: BUN/Creatinine Ratio 14 (6-26); Blood Urea Nitrogen 8 mg/dL (8-23); Calcium 8.8 mg/dL (8.6-10.3); Carbon Dioxide 28 mEq/L (23-29); Chloride 88 mEq/L (98-107); Glucose 101 mg/dL (70-105); Osmolality,Calculated 250 (280-300); Potassium 3.7 mEq/L (3.5-5.1); Sodium 121 mEq/L (136-145); eGFR For African Americans > 60 (> 60); eGFR For Non-African Americans > 60 (> 60)
[2022-02-23 15:40] LABS: BUN/Creatinine Ratio 16 (6-26); Blood Urea Nitrogen 10 mg/dL (8-23); Calcium 9.1 mg/dL (8.6-10.3); Carbon Dioxide 28 mEq/L (23-29); Chloride 87 mEq/L (98-107); Glucose 181 mg/dL (70-105); Osmolality,Calculated 256 (280-300); Potassium 3.9 mEq/L (3.5-5.1); Sodium 121 mEq/L (136-145); eGFR For African Americans > 60 (> 60); eGFR For Non-African Americans > 60 (> 60)
[2022-02-23] MEDS: Thiamine (B-1) 100 MG, Folic Acid 1 MG, MVI, adult with vitamin K 10 ML in 0.9 % Sodi... IVPB SCH (18:00)
[2022-02-23 19:24] LABS: Blood Urea Nitrogen 10 mg/dL (8-23); Calcium 8.7 mg/dL (8.6-10.3); Carbon Dioxide 27 mEq/L (23-29); Chloride 89 mEq/L (98-107); Glucose 186 mg/dL (70-105); Osmolality,Calculated 258 (280-300); Potassium 3.7 mEq/L (3.5-5.1); Sodium 122 mEq/L (136-145)
[2022-02-23 20:19] LABS: BUN/Creatinine Ratio 12 (6-26); eGFR For African Americans > 60 (> 60); eGFR For Non-African Americans > 60 (> 60)
[2022-02-23 23:15] LABS: BUN/Creatinine Ratio 15 (6-26); Blood Urea Nitrogen 11 mg/dL (8-23); Calcium 8.5 mg/dL (8.6-10.3); Carbon Dioxide 27 mEq/L (23-29); Chloride 91 mEq/L (98-107); Glucose 186 mg/dL (70-105); Osmolality,Calculated 260 (280-300); Sodium 123 mEq/L (136-145); eGFR For African Americans > 60 (> 60); eGFR For Non-African Americans > 60 (> 60)
[2022-02-24] MEDS: Dexmedetomidine HCl 400 MCG/100 ML MLS IVC SCH ×2 (01:10→18:57)
[2022-02-24 03:16] LABS: Basophils % 0.3 %; Eosinophils # 0.1 K/mcL (0.0-0.6); Hematocrit 35.4 % (37.5-50.1); Hemoglobin 12.4 g/dL (12.9-16.9); Immature Granulocytes % 0.7 % (0-4); Lymphocytes # 0.9 K/mcL (0.6-4.6); Lymphocytes % 15.5 %; Mean Corpuscular Hemoglobin 31.6 pg (28.0-33.3); Mean Corpuscular Volume 90.3 fL (83.0-100.0); Mean Platelet Volume 8.6 fL (9.4-12.4); Monocytes # 0.5 K/mcL (0.0-1.3); Monocytes % 8.7 %; Neutrophils # 4.2 K/mcL (1.6-8.9); Platelet Count 230 K/mcL (140-400); Red Blood Count 3.92 M/mcL (4.19-5.50); Red Cell Distribution Width 12.8 % (11.5-14.5); Segmented Neutrophils % 73.8 %; White Blood Count 5.7 K/mcL (4.3-11.1)
[2022-02-24 03:48] LABS: BUN/Creatinine Ratio 18 (6-26); Blood Urea Nitrogen 11 mg/dL (8-23); Calcium 9.1 mg/dL (8.6-10.3); Carbon Dioxide 27 mEq/L (23-29); Chloride 91 mEq/L (98-107); Glucose 137 mg/dL (70-105); Magnesium 1.5 mg/dL (1.6-2.6); Osmolality,Calculated 264 (280-300); Phosphorous 3.3 mg/dL (2.7-4.5); Potassium 3.8 mEq/L (3.5-5.1); Sodium 126 mEq/L (136-145); eGFR For African Americans > 60 (> 60); eGFR For Non-African Americans > 60 (> 60)
[2022-02-24] MEDS: *HR* Heparin 5,000 UNIT/ML VIAL SQ SCH ×2 (06:12→18:17)
[2022-02-24] MEDS ORDERED: Fluticasone Propionate Nasal 50 MCG/SPRAY BOTTLE NS PRN (07:53)
[2022-02-24] MEDS: Insulin LISPRO 300 UNITS/3 ML VIAL SUBQ SCH ×4 (08:54→21:06)
[2022-02-24 10:27] LABS: BUN/Creatinine Ratio 16 (6-26); Blood Urea Nitrogen 9 mg/dL (8-23); Calcium 8.8 mg/dL (8.6-10.3); Carbon Dioxide 26 mEq/L (23-29); Chloride 93 mEq/L (98-107); Glucose 203 mg/dL (70-105); Osmolality,Calculated 264 (280-300); Potassium 3.8 mEq/L (3.5-5.1); Sodium 125 mEq/L (136-145); eGFR For African Americans > 60 (> 60); eGFR For Non-African Americans > 60 (> 60)
[2022-02-24] MEDS ORDERED: *HR* HYDROcodone/Acet 5/325 mg TABLET PO PRN (13:54)
[2022-02-24] MEDS: traZODone 50 MG TABLET PO SCH (21:08)
[2022-02-24] MEDS: Gabapentin 300 MG CAPSULE PO SCH (21:08)
[2022-02-25 05:28] LABS: BUN/Creatinine Ratio 14 (6-26); Blood Urea Nitrogen 7 mg/dL (8-23); Calcium 8.8 mg/dL (8.6-10.3); Carbon Dioxide 23 mEq/L (23-29); Chloride 98 mEq/L (98-107); Glucose 182 mg/dL (70-105); Osmolality,Calculated 269 (280-300); Potassium 4.2 mEq/L (3.5-5.1); Sodium 128 mEq/L (136-145); eGFR For African Americans > 60 (> 60); eGFR For Non-African Americans > 60 (> 60)
[2022-02-25] MEDS: *HR* Heparin 5,000 UNIT/ML VIAL SQ SCH ×2 (05:59→18:14)
[2022-02-25] MEDS: Thiamine (B-1) 100 MG TABLET PO SCH (08:18)
[2022-02-25] MEDS: Gabapentin 300 MG CAPSULE PO SCH ×3 (08:18→20:22)
[2022-02-25] MEDS: Folic Acid 1 MG TABLET PO SCH (08:18)
[2022-02-25] MEDS: Insulin LISPRO 300 UNITS/3 ML VIAL SUBQ SCH ×4 (08:31→20:23)
[2022-02-25] MEDS ORDERED: lisinopriL 5 MG TABLET PO SCH (09:00)
[2022-02-25] MEDS: lisinopriL 20 MG TABLET PO SCH ×2 (10:51→14:37)
[2022-02-25] MEDS: *HR* LORazepam 2 MG/ML VIAL IVP PRN (19:10)
[2022-02-25] MEDS: traZODone 50 MG TABLET PO SCH (20:22)
[2022-02-25] MEDS ORDERED: cloNIDine HCL 0.1 MG TABLET PO ONE (21:48)
[2022-02-25] MEDS ORDERED: *HR* Metoprolol 5 MG/5 ML VIAL IVP ONE (22:11)
[2022-02-26 02:31] LABS: BUN/Creatinine Ratio 17 (6-26); Blood Urea Nitrogen 11 mg/dL (8-23); Carbon Dioxide 25 mEq/L (23-29); Chloride 96 mEq/L (98-107); Glucose 231 mg/dL (70-105); Magnesium 1.2 mg/dL (1.6-2.6); Osmolality,Calculated 273 (280-300); Phosphorous 2.1 mg/dL (2.7-4.5); Sodium 128 mEq/L (136-145); eGFR For African Americans > 60 (> 60); eGFR For Non-African Americans > 60 (> 60)
[2022-02-26] MEDS: *HR* Heparin 5,000 UNIT/ML VIAL SQ SCH ×2 (06:45→18:07)
[2022-02-26] MEDS: Dexmedetomidine HCl 400 MCG/100 ML MLS IVC SCH (07:16)
[2022-02-26] MEDS: Insulin LISPRO 300 UNITS/3 ML VIAL SUBQ SCH ×4 (08:30→22:26)
[2022-02-26] MEDS: Folic Acid 1 MG TABLET PO SCH (08:30)
[2022-02-26] MEDS: Thiamine (B-1) 100 MG TABLET PO SCH (08:30)
[2022-02-26] MEDS: Magnesium Oxide 400 MG TABLET PO SCH ×2 (08:30→22:25)
[2022-02-26] MEDS: Gabapentin 300 MG CAPSULE PO SCH ×3 (08:31→22:25)
[2022-02-26] MEDS: lisinopriL 20 MG TABLET PO SCH (08:31)
[2022-02-26] MEDS ORDERED: amLODIPine 5 MG TABLET PO SCH (12:45)
[2022-02-26] MEDS: traZODone 50 MG TABLET PO SCH (22:25)
[2022-02-27 03:25] LABS: Basophils % 0.5 %; Eosinophils # 0.2 K/mcL (0.0-0.6); Eosinophils % 2.1 %; Hematocrit 33.7 % (37.5-50.1); Hemoglobin 11.3 g/dL (12.9-16.9); Immature Granulocytes % 1.6 % (0-4); Lymphocytes # 1.2 K/mcL (0.6-4.6); Lymphocytes % 15.1 %; Mean Corpuscular HGB Conc 33.5 g/dL (31.6-35.5); Mean Corpuscular Hemoglobin 30.8 pg (28.0-33.3); Mean Corpuscular Volume 91.8 fL (83.0-100.0); Mean Platelet Volume 8.4 fL (9.4-12.4); Monocytes # 0.8 K/mcL (0.0-1.3); Monocytes % 9.7 %; Neutrophils # 5.8 K/mcL (1.6-8.9); Platelet Count 229 K/mcL (140-400); Red Blood Count 3.67 M/mcL (4.19-5.50); Red Cell Distribution Width 12.9 % (11.5-14.5); White Blood Count 8.2 K/mcL (4.3-11.1)
[2022-02-27 03:44] LABS: BUN/Creatinine Ratio 24 (6-26); Blood Urea Nitrogen 12 mg/dL (8-23); Carbon Dioxide 24 mEq/L (23-29); Chloride 95 mEq/L (98-107); Glucose 221 mg/dL (70-105); Magnesium 1.1 mg/dL (1.6-2.6); Osmolality,Calculated 275 (280-300); Potassium 4.1 mEq/L (3.5-5.1); Sodium 129 mEq/L (136-145); eGFR For African Americans > 60 (> 60); eGFR For Non-African Americans > 60 (> 60)
[2022-02-27] MEDS: *HR* Heparin 5,000 UNIT/ML VIAL SQ SCH ×2 (05:07→16:54)
[2022-02-27] MEDS: Thiamine (B-1) 100 MG TABLET PO SCH (09:40)
[2022-02-27] MEDS: Gabapentin 300 MG CAPSULE PO SCH ×3 (09:40→20:04)
[2022-02-27] MEDS: Magnesium Oxide 400 MG TABLET PO SCH ×2 (09:40→20:03)
[2022-02-27] MEDS: Folic Acid 1 MG TABLET PO SCH (09:40)
[2022-02-27] MEDS: lisinopriL 20 MG TABLET PO SCH (09:40)
[2022-02-27] MEDS: Insulin LISPRO 300 UNITS/3 ML VIAL SUBQ SCH ×4 (09:41→20:04)
[2022-02-27] MEDS: *HR* HYDROcodone/Acet 5/325 mg TABLET PO PRN ×2 (16:54→22:56)
[2022-02-27] MEDS: traZODone 50 MG TABLET PO SCH (20:03)
[2022-02-28 03:53] LABS: BUN/Creatinine Ratio 26 (6-26); Blood Urea Nitrogen 16 mg/dL (8-23); Calcium 8.8 mg/dL (8.6-10.3); Carbon Dioxide 27 mEq/L (23-29); Chloride 94 mEq/L (98-107); Glucose 283 mg/dL (70-105); Magnesium 1.4 mg/dL (1.6-2.6); Osmolality,Calculated 277 (280-300); Potassium 4.8 mEq/L (3.5-5.1); Sodium 128 mEq/L (136-145); eGFR For African Americans > 60 (> 60); eGFR For Non-African Americans > 60 (> 60)
[2022-02-28] MEDS: *HR* HYDROcodone/Acet 5/325 mg TABLET PO PRN ×2 (06:39→20:20)
[2022-02-28] MEDS: *HR* Heparin 5,000 UNIT/ML VIAL SQ SCH ×2 (06:39→18:02)
[2022-02-28] MEDS: Folic Acid 1 MG TABLET PO SCH (09:28)
[2022-02-28] MEDS: Insulin LISPRO 300 UNITS/3 ML VIAL SUBQ SCH ×4 (09:29→20:21)
[2022-02-28] MEDS: Thiamine (B-1) 100 MG TABLET PO SCH (09:29)
[2022-02-28] MEDS: lisinopriL 20 MG TABLET PO SCH (09:29)
[2022-02-28] MEDS: Gabapentin 300 MG CAPSULE PO SCH ×3 (09:29→22:45)
[2022-02-28] MEDS: Magnesium Oxide 400 MG TABLET PO SCH ×2 (09:29→20:20)
[2022-02-28] MEDS: traZODone 50 MG TABLET PO SCH (20:19)
[2022-03-01] MEDS: *HR* Heparin 5,000 UNIT/ML VIAL SQ SCH ×2 (06:46→18:50)
[2022-03-01] MEDS: Folic Acid 1 MG TABLET PO SCH (08:13)
[2022-03-01] MEDS: Magnesium Oxide 400 MG TABLET PO SCH ×2 (08:13→21:55)
[2022-03-01] MEDS: Insulin LISPRO 300 UNITS/3 ML VIAL SUBQ SCH ×4 (08:14→21:58)
[2022-03-01] MEDS: lisinopriL 20 MG TABLET PO SCH (08:14)
[2022-03-01] MEDS: Gabapentin 300 MG CAPSULE PO SCH ×3 (08:14→21:56)
[2022-03-01] MEDS: Thiamine (B-1) 100 MG TABLET PO SCH (08:14)
[2022-03-01] MEDS: *HR* HYDROcodone/Acet 5/325 mg TABLET PO PRN ×2 (15:57→21:55)
[2022-03-01] MEDS: traZODone 50 MG TABLET PO SCH (21:55)
[2022-03-02] MEDS: *HR* Heparin 5,000 UNIT/ML VIAL SQ SCH ×2 (04:54→16:50)
[2022-03-02] MEDS: lisinopriL 20 MG TABLET PO SCH (08:30)
[2022-03-02] MEDS: Magnesium Oxide 400 MG TABLET PO SCH ×2 (08:30→20:34)
[2022-03-02] MEDS: Gabapentin 300 MG CAPSULE PO SCH ×3 (08:30→20:34)
[2022-03-02] MEDS: Folic Acid 1 MG TABLET PO SCH (08:31)
[2022-03-02] MEDS: Thiamine (B-1) 100 MG TABLET PO SCH (08:31)
[2022-03-02] MEDS: Insulin LISPRO 300 UNITS/3 ML VIAL SUBQ SCH ×4 (08:32→20:33)
[2022-03-02] MEDS: traZODone 50 MG TABLET PO SCH (20:35)
[2022-03-02] MEDS: *HR* HYDROcodone/Acet 5/325 mg TABLET PO PRN (20:36)
[2022-03-03 04:05] LABS: Basophils # 0.1 K/mcL (0.0-0.2); Basophils % 0.8 %; Eosinophils # 0.2 K/mcL (0.0-0.6); Eosinophils % 2.6 %; Hemoglobin 11.2 g/dL (12.9-16.9); Immature Granulocytes % 1.1 % (0-4); Lymphocytes # 1.4 K/mcL (0.6-4.6); Lymphocytes % 18.5 %; Mean Corpuscular HGB Conc 32.9 g/dL (31.6-35.5); Mean Corpuscular Hemoglobin 30.4 pg (28.0-33.3); Mean Corpuscular Volume 92.4 fL (83.0-100.0); Mean Platelet Volume 8.7 fL (9.4-12.4); Monocytes # 0.7 K/mcL (0.0-1.3); Monocytes % 9.4 %; Platelet Count 176 K/mcL (140-400); Red Blood Count 3.68 M/mcL (4.19-5.50); Segmented Neutrophils % 67.6 %; White Blood Count 7.4 K/mcL (4.3-11.1)
[2022-03-03 05:21] LABS: BUN/Creatinine Ratio 33 (6-26); Blood Urea Nitrogen 19 mg/dL (8-23); Calcium 9.5 mg/dL (8.6-10.3); Carbon Dioxide 31 mEq/L (23-29); Chloride 93 mEq/L (98-107); Glucose 203 mg/dL (70-105); Osmolality,Calculated 280 (280-300); Potassium 5.1 mEq/L (3.5-5.1); Sodium 131 mEq/L (136-145); eGFR For African Americans > 60 (> 60); eGFR For Non-African Americans > 60 (> 60)
[2022-03-03] MEDS: *HR* Heparin 5,000 UNIT/ML VIAL SQ SCH (06:03)
[2022-03-03 07:20] VITALS: TEMP 98; O2SAT 96
[2022-03-03] MEDS: Insulin LISPRO 300 UNITS/3 ML VIAL SUBQ SCH ×2 (07:44→12:23)
[2022-03-03] MEDS: Folic Acid 1 MG TABLET PO SCH (07:45)
[2022-03-03] MEDS: Magnesium Oxide 400 MG TABLET PO SCH (07:45)
[2022-03-03] MEDS: Thiamine (B-1) 100 MG TABLET PO SCH (07:45)
[2022-03-03] MEDS: Gabapentin 300 MG CAPSULE PO SCH ×2 (07:45→14:37)
[2022-03-03] MEDS: lisinopriL 20 MG TABLET PO SCH (07:46)
[2022-03-03 12:40] VITALS: BP 126/73; PULSE 66
[2022-03-03 13:28] LABS: Adenovirus Not Detected (Not Detect); Bordetella Pertussis Not Detected (Not Detect); Chlamydophila pneumoniae Not Detected (Not Detect); Coronavirus 229E Not Detected (Not Detect); Coronavirus HKU1 Not Detected (Not Detect); Coronavirus NL63 Not Detected (Not Detect); Coronavirus OC43 Not Detected (Not Detect); Human Metapneumovirus Not Detected (Not Detect); Human Rhinovirus/Enterovirus Not Detected (Not Detect); Influenza A Subtype 2009 H1 Not Detected (Not Detect); Influenza B Not Detected (Not Detect); Mycoplasma pneumoniae Not Detected (Not Detect); Parainfluenza Virus 1 Not Detected (Not Detect); Parainfluenza Virus 2 Not Detected (Not Detect); Parainfluenza Virus 3 Not Detected (Not Detect); Parainfluenza Virus 4 Not Detected (Not Detect); Respiratory Syncytial Virus Not Detected (Not Detect); SARS-CoV-2 Not Detected (Not Detect)
[2022-03-03] MEDS: *HR* HYDROcodone/Acet 5/325 mg TABLET PO PRN (15:16)
== END 2022-03-03 15:50 | disposition other institution (70) | DRG 897 ==
LOC: ICNU → SUATTDRO 15:01 → 2NNU 02-23 15:28 → 2ANU 02-26 18:44
PROVIDERS: ADMIT Pediatrics; ATTEND General Practice

== ENCOUNTER 2022-03-23 01:28 | Observation (INO) ==
[2022-03-23] MEDS ORDERED: Naloxone 0.4 MG/ML INJ IVP PRN (05:40)
[2022-03-23] MEDS ORDERED: Acetaminophen 325 MG TABLET PO PRN (05:40)
[2022-03-23] MEDS ORDERED: diazePAM 5 MG TABLET PO PRN ×5 (06:22→06:31)
[2022-03-23] MEDS ORDERED: diazePAM 10 MG/2 ML SYRINGE IVP PRN ×5 (06:22)
[2022-03-23] MEDS ORDERED: *HR* Dextrose 50 % in Water (Syg) 50 ML SYRINGE IVP PRN (06:54)
[2022-03-23] MEDS ORDERED: D5% in Water 1,000 ML IVC PRN (06:54)
[2022-03-23] MEDS ORDERED: Dextrose Gel 15 GM/37.5 ML TUBE PO PRN ×2 (06:54)
[2022-03-23 07:09] LABS: Magnesium 1.5 mg/dL (1.6-2.6); Phosphorous 3.7 mg/dL (2.7-4.5)
[2022-03-23 07:10] LABS: Albumin 3.9 g/dL (3.5-5.7); Albumin/Globulin Ratio 1.3 (1.1-2.2); Bilirubin,Direct 0.2 mg/dL (0.0-0.2); Bilirubin,Indirect 0.5 mg/dL (0.0-1.0); Bilirubin,Total 0.7 mg/dL (0.3-1.0); Globulin 2.9 g/dL (2.4-3.5); Total Protein 6.8 g/dL (6.4-8.9)
[2022-03-23 07:12] LABS: BUN/Creatinine Ratio 13 (6-26); Blood Urea Nitrogen 7 mg/dL (8-23); Calcium 8.7 mg/dL (8.6-10.3); Carbon Dioxide 29 mEq/L (23-29); Chloride 78 mEq/L (98-107); Glucose 175 mg/dL (70-105); Osmolality,Calculated 240 (280-300); Potassium 3.4 mEq/L (3.5-5.1); Sodium 114 mEq/L (136-145)
[2022-03-23] MEDS: Thiamine (B-1) 100 MG TABLET PO SCH (07:42)
[2022-03-23] MEDS: Vitamin B Complex/Vit C/Vit E 1 EACH TABLET PO SCH (07:42)
[2022-03-23] MEDS: cefTRIAXone 1,000 MG in Water for inj. (sterile) 10 ML IVP SCH (07:42)
[2022-03-23] MEDS: Folic Acid 1 MG TABLET PO SCH (07:42)
[2022-03-23] MEDS: Insulin LISPRO 300 UNITS/3 ML VIAL SUBQ SCH ×4 (07:44→21:50)
[2022-03-23 09:40] LABS: BUN/Creatinine Ratio 14 (6-26); Blood Urea Nitrogen 7 mg/dL (8-23); Calcium 8.6 mg/dL (8.6-10.3); Carbon Dioxide 25 mEq/L (23-29); Chloride 80 mEq/L (98-107); Glucose 164 mg/dL (70-105); Osmolality,Calculated 242 (280-300); Potassium 3.2 mEq/L (3.5-5.1); Sodium 115 mEq/L (136-145)
[2022-03-23 09:41] LABS: BUN/Creatinine Ratio 13 (6-26); Blood Urea Nitrogen 7 mg/dL (8-23); Calcium 8.6 mg/dL (8.6-10.3); Carbon Dioxide 26 mEq/L (23-29); Chloride 79 mEq/L (98-107); Glucose 162 mg/dL (70-105); Osmolality,Calculated 242 (280-300); Potassium 3.2 mEq/L (3.5-5.1); Sodium 115 mEq/L (136-145)
[2022-03-23 10:38] LABS: Estimated Average Glucose 157 mg/dl; Hemoglobin A1C 7.1 %
[2022-03-23 11:01] LABS: Amphetamine Screen,Urine Negative ng/mL (Cutoff=1000); Barbiturate Screen,Urine Negative ng/mL (Cutoff=200); Benzodiazepines Screen,Urine Positive ng/mL (Cutoff=200); Cannabinoid Screen,Urine Negative ng/mL (Cutoff = 50); Cocaine Screen,Urine Negative ng/mL (Cutoff= 300); Opiate Screen,Urine Negative ng/mL (Cutoff=300); Phencyclidine Screen,Urine Negative ng/mL (Cutoff=25); Sodium, Urine < 10.0 mEq/L
[2022-03-23 13:52] LABS: Thyroid Stimulating Hormone 1.703 mcIU/mL (0.340-5.600); Uric Acid 4.2 mg/dL (2.3-7.6)
[2022-03-24 01:39] LABS: Basophils % 0.5 %; Eosinophils # 0.1 K/mcL (0.0-0.6); Eosinophils % 0.8 %; Hematocrit 40.1 % (37.5-50.1); Hemoglobin 14.2 g/dL (12.9-16.9); Immature Granulocytes % 0.7 % (0-4); Lymphocytes # 1.2 K/mcL (0.6-4.6); Lymphocytes % 15.4 %; Mean Corpuscular HGB Conc 35.4 g/dL (31.6-35.5); Mean Corpuscular Hemoglobin 30.7 pg (28.0-33.3); Mean Corpuscular Volume 86.6 fL (83.0-100.0); Mean Platelet Volume 8.5 fL (9.4-12.4); Monocytes # 0.9 K/mcL (0.0-1.3); Monocytes % 11.5 %; Neutrophils # 5.3 K/mcL (1.6-8.9); Platelet Count 166 K/mcL (140-400); Red Blood Count 4.63 M/mcL (4.19-5.50); Red Cell Distribution Width 12.9 % (11.5-14.5); Segmented Neutrophils % 71.1 %; White Blood Count 7.5 K/mcL (4.3-11.1)
[2022-03-24 01:59] LABS: BUN/Creatinine Ratio 19 (6-26); Blood Urea Nitrogen 11 mg/dL (8-23); Calcium 8.9 mg/dL (8.6-10.3); Carbon Dioxide 25 mEq/L (23-29); Chloride 86 mEq/L (98-107); Glucose 166 mg/dL (70-105); Osmolality,Calculated 255 (280-300); Potassium 3.7 mEq/L (3.5-5.1); Sodium 121 mEq/L (136-145)
[2022-03-24] MEDS: *HR* Enoxaparin 40 MG/0.4 ML SYRINGE SQ SCH (07:00)
[2022-03-24] MEDS: Insulin LISPRO 300 UNITS/3 ML VIAL SUBQ SCH ×4 (07:01→21:09)
[2022-03-24] MEDS: Folic Acid 1 MG TABLET PO SCH (08:08)
[2022-03-24] MEDS: Vitamin B Complex/Vit C/Vit E 1 EACH TABLET PO SCH (08:08)
[2022-03-24] MEDS: Thiamine (B-1) 100 MG TABLET PO SCH (08:08)
[2022-03-24] MEDS: cefTRIAXone 1,000 MG in Water for inj. (sterile) 10 ML IVP SCH (08:09)
[2022-03-24 11:30] LABS: Creatinine,Urine 35 mg/dL; Microalbum/Creatinine Ratio,Ur 1509 mcg/mg (Less than 30); Microalbumin,Urine 528 mg/L; Protein/Creatinine Ratio,Urine 2.14 mg/mg (0.00-0.20)
[2022-03-24] MEDS: Ampicillin/Sulbactam 3,000 MG in 0.9 % Sodium Chloride Mini Bag 100 ML IVPB SCH ×2 (17:27→23:49)
[2022-03-24] MEDS: traZODone 50 MG TABLET PO SCH (21:09)
[2022-03-24] MEDS: Gabapentin 300 MG CAPSULE PO SCH (21:09)
[2022-03-25 04:03] LABS: BUN/Creatinine Ratio 27 (6-26); Blood Urea Nitrogen 15 mg/dL (8-23); Calcium 9.7 mg/dL (8.6-10.3); Carbon Dioxide 26 mEq/L (23-29); Chloride 91 mEq/L (98-107); Glucose 195 mg/dL (70-105); Osmolality,Calculated 270 (280-300); Potassium 4.1 mEq/L (3.5-5.1); Sodium 127 mEq/L (136-145)
[2022-03-25] MEDS: *HR* Enoxaparin 40 MG/0.4 ML SYRINGE SQ SCH (05:20)
[2022-03-25] MEDS: Ampicillin/Sulbactam 3,000 MG in 0.9 % Sodium Chloride Mini Bag 100 ML IVPB SCH ×4 (05:20→23:08)
[2022-03-25] MEDS: Insulin LISPRO 300 UNITS/3 ML VIAL SUBQ SCH ×4 (08:50→21:40)
[2022-03-25] MEDS: Folic Acid 1 MG TABLET PO SCH ×2 (09:00→09:30)
[2022-03-25] MEDS: Gabapentin 300 MG CAPSULE PO SCH ×3 (09:15→21:04)
[2022-03-25] MEDS: Vitamin B Complex/Vit C/Vit E 1 EACH TABLET PO SCH (09:15)
[2022-03-25] MEDS: Thiamine (B-1) 100 MG TABLET PO SCH (09:15)
[2022-03-25] MEDS: amLODIPine 5 MG TABLET PO SCH (09:33)
[2022-03-25] MEDS: lisinopriL 20 MG TABLET PO SCH (09:34)
[2022-03-25] MEDS: traZODone 50 MG TABLET PO SCH (21:04)
[2022-03-26 02:41] LABS: BUN/Creatinine Ratio 32 (6-26); Blood Urea Nitrogen 17 mg/dL (8-23); Calcium 9.1 mg/dL (8.6-10.3); Carbon Dioxide 28 mEq/L (23-29); Chloride 96 mEq/L (98-107); Glucose 148 mg/dL (70-105); Osmolality,Calculated 274 (280-300); Potassium 4.6 mEq/L (3.5-5.1); Sodium 130 mEq/L (136-145)
[2022-03-26] MEDS: Ampicillin/Sulbactam 3,000 MG in 0.9 % Sodium Chloride Mini Bag 100 ML IVPB SCH ×2 (06:11→15:58)
[2022-03-26] MEDS: *HR* Enoxaparin 40 MG/0.4 ML SYRINGE SQ SCH (06:12)
[2022-03-26] MEDS: Vitamin B Complex/Vit C/Vit E 1 EACH TABLET PO SCH (08:17)
[2022-03-26] MEDS: amLODIPine 5 MG TABLET PO SCH (08:17)
[2022-03-26] MEDS: Gabapentin 300 MG CAPSULE PO SCH ×3 (08:17→21:14)
[2022-03-26] MEDS: Folic Acid 1 MG TABLET PO SCH ×2 (08:17→09:00)
[2022-03-26] MEDS: lisinopriL 20 MG TABLET PO SCH (08:17)
[2022-03-26] MEDS: Thiamine (B-1) 100 MG TABLET PO SCH (08:17)
[2022-03-26] MEDS: Insulin LISPRO 300 UNITS/3 ML VIAL SUBQ SCH ×4 (08:18→21:16)
[2022-03-26] MEDS: traZODone 50 MG TABLET PO SCH (21:15)
[2022-03-27] MEDS: *HR* Enoxaparin 40 MG/0.4 ML SYRINGE SQ SCH (05:29)
[2022-03-27] MEDS: Insulin LISPRO 300 UNITS/3 ML VIAL SUBQ SCH ×4 (08:51→20:53)
[2022-03-27] MEDS: amLODIPine 5 MG TABLET PO SCH (09:22)
[2022-03-27] MEDS: Thiamine (B-1) 100 MG TABLET PO SCH (09:23)
[2022-03-27] MEDS: Vitamin B Complex/Vit C/Vit E 1 EACH TABLET PO SCH (09:23)
[2022-03-27] MEDS: Folic Acid 1 MG TABLET PO SCH ×2 (09:23)
[2022-03-27] MEDS: lisinopriL 20 MG TABLET PO SCH (09:23)
[2022-03-27] MEDS: Gabapentin 300 MG CAPSULE PO SCH ×3 (09:23→20:53)
[2022-03-27] MEDS: traZODone 50 MG TABLET PO SCH (20:53)
[2022-03-28 03:48] LABS: BUN/Creatinine Ratio 30 (6-26); Blood Urea Nitrogen 19 mg/dL (8-23); Calcium 8.7 mg/dL (8.6-10.3); Carbon Dioxide 27 mEq/L (23-29); Chloride 95 mEq/L (98-107); Glucose 262 mg/dL (70-105); Osmolality,Calculated 279 (280-300); Potassium 4.6 mEq/L (3.5-5.1); Sodium 129 mEq/L (136-145)
[2022-03-28] MEDS: *HR* Enoxaparin 40 MG/0.4 ML SYRINGE SQ SCH (05:03)
[2022-03-28] MEDS: Folic Acid 1 MG TABLET PO SCH ×2 (09:18→09:22)
[2022-03-28] MEDS: Gabapentin 300 MG CAPSULE PO SCH ×3 (09:18→20:38)
[2022-03-28] MEDS: Thiamine (B-1) 100 MG TABLET PO SCH (09:18)
[2022-03-28] MEDS: Vitamin B Complex/Vit C/Vit E 1 EACH TABLET PO SCH (09:18)
[2022-03-28] MEDS: amLODIPine 5 MG TABLET PO SCH (09:18)
[2022-03-28] MEDS: lisinopriL 20 MG TABLET PO SCH (09:19)
[2022-03-28] MEDS: Insulin LISPRO 300 UNITS/3 ML VIAL SUBQ SCH ×4 (09:21→20:37)
[2022-03-28 19:56] LABS: Influenza A PCR Negative (Negative); Influenza B PCR Negative (Negative); Resp. Syncytial Virus PCR Negative (Negative)
[2022-03-28 19:59] LABS: SARS-CoV-2 by PCR (In House) Negative (Negative)
[2022-03-28 20:12] VITALS: O2SAT 96
[2022-03-28] MEDS: traZODone 50 MG TABLET PO SCH (20:38)
[2022-03-28 23:47] VITALS: BP 147/83; PULSE 88; TEMP 98.1
== END 2022-03-29 01:20 ==
LOC: 2NNU → SUATTDRO 05:33 → 3BNU 03-26 15:40
PROVIDERS: ADMIT Internal Medicine; ATTEND Family Medicine